=== PATIENT | male | born 1965 | race Caucasian/White ===

== ENCOUNTER 2021-01-10 10:47 | Day surgery (SDC) | payer OTHER ==
[~2021-01-10] VITALS: Ht 185.4 cm; Wt 70.5 kg
[2021-01-10] MEDS ORDERED: SODIUM CHLORIDE 0.9% 1,000 ML IV ONE (11:00)
[2021-01-10] MEDS ORDERED: SODIUM CHLORIDE 0.9% 1,000 ML ONE (11:00)
[2021-01-10 11:22] LABS: COVID AG,FIA SOURCE NASOPHARYNGEAL
== END 2021-01-10 15:00 | disposition home or self-care (01) ==
LOC: SURGERY 10:47
PROVIDERS: ATTEND Internal Medicine Gastroenterology
DX: D50.9 Iron deficiency anemia, unspecified (principal); K64.8 Other hemorrhoids; I10 Essential (primary) hypertension; K21.9 Gastro-esophageal reflux disease without esophagitis; D64.9 Anemia, unspecified; F17.210 Nicotine dependence, cigarettes, uncomplicated; F41.9 Anxiety disorder, unspecified; Z79.899 Other long term (current) drug therapy; Z72.89 Other problems related to lifestyle; Z98.890 Other specified postprocedural states; Z86.010 Personal history of colon polyps; Z88.0 Allergy status to penicillin
CPT/HCPCS: 45378; 87426; C9803; J7030